=== PATIENT | female | born 1950 | race Caucasian/White ===

== ENCOUNTER 2017-04-28 09:03 | Outpatient (CLI) | payer MEDICARE, OTHER ==
[~2017-04-28 09:03] MED LIST: ALPR1TAB2 PO; ESCI10TA PO
== END 2017-04-28 23:59 | disposition home or self-care (01) ==
LOC: CT 09:03
DX: K76.89 Other specified diseases of liver (principal); K86.1 Other chronic pancreatitis; N20.0 Calculus of kidney; K57.90 Diverticulosis of intestine, part unspecified, without perforation or abscess without bleeding; S32.89XD Fracture of other parts of pelvis, subsequent encounter for fracture with routine healing; X58.XXXD Exposure to other specified factors, subsequent encounter
CPT/HCPCS: 74160; J7050; Q9963; Q9967 ×2